=== PATIENT | male | born 1990 | race Caucasian/White ===

== ENCOUNTER 2017-07-12 05:13 | Emergency (ER) | payer MEDICAID ==
[~2017-07-12] VITALS: Ht 177.8 cm; Wt 75.0 kg
[~2017-07-12 05:13] MED LIST: CLIN-26 PO; CLIN-80 PO
[2017-07-12 05:51] LABS: BASOPHILS % (AUTO) 0.4 % (0-1); EOSINOPHILS # (AUTO) 0.2 X10'3 (0-0.9); EOSINOPHILS % (AUTO) 3.7 % (0-6); HEMATOCRIT 41.7 % (42.0-52.0); HEMOGLOBIN 14.4 g/dl (14.0-17.9); LYMPHOCYTES # (AUTO) 1.5 X10'3 (1.1-4.8); LYMPHOCYTES % (AUTO) 28.6 % (21-51); MEAN CORPUSCULAR HEMOGLOBIN 29.3 PG (27.0-31.0); MEAN CORPUSCULAR HGB CONC 34.5 % (33.0-36.5); MEAN CORPUSCULAR VOLUME 84.8 FL (78-98); MONOCYTES # (AUTO) 0.7 X10'3 (0-0.9); MONOCYTES % (AUTO) 12.7 % (2-12); NEUTROPHILS # (AUTO) 2.9 X10'3 (1.8-7.7); NEUTROPHILS % (AUTO) 54.6 % (42-75); PLATELET COUNT 274 X10'3 (140-440); RED BLOOD COUNT 4.92 X10'6 (4.70-6.10); RED CELL DISTRIBUTION WIDTH 13.7 % (11.5-14.5); WHITE BLOOD COUNT 5.4 X10'3 (4.5-11.0)
[2017-07-12 06:01] LABS: CLARITY,URINE SLIGHTLY CLOUDY (Clear); COLOR,URINE AMBER (Yellow); GLUCOSE, URINE NEGATIVE (Neg); KETONES,URINE TRACE mg/dl (Neg); LEUKOCYTE ESTERASE ,URINE NEGATIVE (Neg); NITRITES, URINE NEGATIVE (Neg); OCCULT BLOOD,URINE SMALL (Neg); PROTEIN,URINE TRACE mg/dl (Neg)
[2017-07-12 06:01] LABS: PROTHROMBIN TIME 10.5 SECONDS (9.0-12.0)
[2017-07-12 06:05] LABS: UA COLLECTION TYPE CLN CATCH MIDSTREAM
[2017-07-12 06:05] LABS: ALANINE AMINOTRANSFERASE 80 U/L (12-78); ALBUMIN 3.8 G/DL (3.4-5.0); ALBUMIN/GLOBULIN RATIO 1.1 (1.1-1.5); ALKALINE PHOSPHATASE 87 IU/L (46-116); ANION GAP 8 (8-16); ASPARTATE AMINO TRANSFERASE 50 U/L (10-37); BILIRUBIN,TOTAL 0.5 MG/DL (0.1-1.0); BLOOD UREA NITROGEN 15 MG/DL (7-18); BUN/CREATININE RATIO 17.6 (5.4-32.0); CALCIUM 9.1 MG/DL (8.5-10.1); CHLORIDE 105 MMOL/L (99-107); CREATININE 0.85 MG/DL (0.60-1.10); GLUCOSE 96 MG/DL (70-104); POTASSIUM 3.9 MMOL/L (3.5-5.1); SODIUM 142 MMOL/L (135-145); TOTAL PROTEIN 7.4 G/DL (6.4-8.2); eGFR > 90 ML/MIN
[2017-07-12] MEDS ORDERED: ondansetron/PF 4mg/2ml inj IV ONE (06:10)
[2017-07-12] MEDS ORDERED: normal saline 1000ML IV soln IVB ONE (06:10)
[2017-07-12 06:12] LABS: BACTERIA,URINE NONE SEEN /HPF (Neg); CAL OXALATE CRYSTALS 2+ /HPF (NEGATIVE); MUCUS STRANDS MODERATE /LPF (Neg); RBC,URINE 0-2 /HPF (0-2); SQUAMOUS EPITHELIAL CELL,UR NONE SEEN /LPF (FEW); WBC,URINE 0-4 /HPF (0-4)
[2017-07-12] MEDS ORDERED: ONDA4TAB9 PO (06:21)
[2017-07-12 07:14] VITALS: BP 129/76
== END 2017-07-12 07:18 | disposition home or self-care (01) ==
LOC: ER 05:13
DX: A08.4 Viral intestinal infection, unspecified (principal); F15.10 Other stimulant abuse, uncomplicated; F17.200 Nicotine dependence, unspecified, uncomplicated
CPT/HCPCS: 36415; 80053; 81001; 85025; 85610; 93005; 96361; 96374; 99285; J2405; J7030

== ENCOUNTER 2018-04-22 04:48 | Emergency (ER) | payer MEDICAID ==
[~2018-04-22] VITALS: Ht 177.8 cm; Wt 78.5 kg
[~2018-04-22 04:48] MED LIST changes: -CLIN-80 PO; +CLIN300C85 PO
[2018-04-22 04:50] VITALS: BP 134/88
[2018-04-22] MEDS ORDERED: SULF1TAB49 PO (05:27)
== END 2018-04-22 05:44 | disposition home or self-care (01) ==
LOC: ER 04:48
DX: L03.113 Cellulitis of right upper limb (principal); L03.114 Cellulitis of left upper limb; F15.90 Other stimulant use, unspecified, uncomplicated; F11.90 Opioid use, unspecified, uncomplicated; F17.200 Nicotine dependence, unspecified, uncomplicated; Z79.899 Other long term (current) drug therapy
CPT/HCPCS: 99283

== ENCOUNTER 2018-08-29 06:20 | Emergency (ER) | payer MEDICAID ==
[~2018-08-29] VITALS: Ht 177.8 cm; Wt 81.9 kg
[2018-08-29 06:39] VITALS: BP 139/95
[2018-08-29] MEDS ORDERED: SULF1TAB49 PO (06:45)
[2018-08-29] MEDS ORDERED: TETanus/Pertussis (Acell)/Diphther VAC/PF (Tdap-Adult) 0.5ml syringe IM ONE (07:15)
== END 2018-08-29 08:20 | disposition home or self-care (01) ==
LOC: ER 06:21
DX: L02.01 Cutaneous abscess of face (principal); F11.10 Opioid abuse, uncomplicated; F15.10 Other stimulant abuse, uncomplicated; Z86.14 Personal history of Methicillin resistant Staphylococcus aureus infection; Z79.899 Other long term (current) drug therapy
CPT/HCPCS: 90471; 90715; 99283

== ENCOUNTER 2018-11-01 20:04 | Emergency (ER) | payer MEDICAID ==
[~2018-11-01] VITALS: Ht 180.3 cm; Wt 77.0 kg
[~2018-11-01 20:04] MED LIST changes: +CLIN-96 PO; -CLIN300C85 PO
[2018-11-01 20:06] VITALS: BP 140/82
== END 2018-11-01 20:32 | disposition home or self-care (01) ==
LOC: ER 20:04
DX: F15.10 Other stimulant abuse, uncomplicated (principal); F11.90 Opioid use, unspecified, uncomplicated; F17.200 Nicotine dependence, unspecified, uncomplicated; Z86.14 Personal history of Methicillin resistant Staphylococcus aureus infection; Z79.899 Other long term (current) drug therapy
CPT/HCPCS: 99283

== ENCOUNTER 2018-11-07 14:59 | Emergency (ER) | payer MEDICAID ==
[~2018-11-07] VITALS: Ht 177.8 cm; Wt 79.5 kg
[2018-11-07 15:10] VITALS: BP 138/93
== END 2018-11-07 16:37 | disposition home or self-care (01) ==
LOC: ER 14:59
DX: F11.10 Opioid abuse, uncomplicated (principal); F15.10 Other stimulant abuse, uncomplicated; L55.9 Sunburn, unspecified
CPT/HCPCS: 99283

== ENCOUNTER 2018-11-13 08:09 | Emergency (ER) | payer MEDICAID ==
[~2018-11-13] VITALS: Ht 177.8 cm; Wt 78.0 kg
[2018-11-13 08:18] VITALS: BP 135/88
--- NOTE | 2018-11-13 08:31 | NUR ---
pt reports some chills and blurred vision.
== END 2018-11-13 09:25 | disposition home or self-care (01) ==
LOC: ER 08:09
DX: F19.10 Other psychoactive substance abuse, uncomplicated (principal); F15.90 Other stimulant use, unspecified, uncomplicated; F11.90 Opioid use, unspecified, uncomplicated; Z79.2 Long term (current) use of antibiotics; Z86.14 Personal history of Methicillin resistant Staphylococcus aureus infection
CPT/HCPCS: 99281

== ENCOUNTER 2018-12-12 16:10 | Emergency (ER) | payer MEDICAID ==
[~2018-12-12] VITALS: Ht 177.8 cm; Wt 78.7 kg
[2018-12-12 16:17] VITALS: BP 129/80
[2018-12-12] MEDS ORDERED: SULF1TAB49 PO (17:33)
== END 2018-12-12 18:06 | disposition home or self-care (01) ==
LOC: ER 16:11
DX: L02.01 Cutaneous abscess of face (principal); M27.2 Inflammatory conditions of jaws; F17.200 Nicotine dependence, unspecified, uncomplicated; F15.90 Other stimulant use, unspecified, uncomplicated; F11.90 Opioid use, unspecified, uncomplicated; Z79.899 Other long term (current) drug therapy
CPT/HCPCS: 10060; 41800; 99283

== ENCOUNTER 2019-01-23 18:19 | Emergency (ER) | payer MEDICAID ==
[~2019-01-23] VITALS: Ht 177.8 cm; Wt 77.3 kg
[2019-01-23 18:21] VITALS: BP 137/93
--- NOTE | 2019-01-23 21:28 | NUR ---
Pt not in room. Call placed to number on file. recived automated message that mail box was full. DR Davis informed
== END 2019-01-23 21:29 | disposition left against medical advice (07) ==
LOC: ER 18:19
DX: K04.7 Periapical abscess without sinus (principal); Z53.21 Procedure and treatment not carried out due to patient leaving prior to being seen by health care provider

== ENCOUNTER 2019-02-02 09:05 | Emergency (ER) | payer MEDICAID ==
[~2019-02-02] VITALS: Ht 177.8 cm; Wt 75.0 kg
[2019-02-02] MEDS ORDERED: ONDA4TAB6 PO (09:45)
[2019-02-02] MEDS ORDERED: ondansetron/PF 4mg/2ml inj IV ONE (09:45)
[2019-02-02] MEDS ORDERED: diphenhydrAMINE 50 mg/ml inj IV ONE (09:45)
[2019-02-02] MEDS ORDERED: normal saline 1000ML IV soln IVB ONE (09:50)
[2019-02-02 09:59] LABS: BASOPHILS % (AUTO) 0.2 % (0-1); EOSINOPHILS # (AUTO) 0.1 X10'3 (0-0.9); EOSINOPHILS % (AUTO) 0.6 % (0-6); HEMATOCRIT 44.8 % (42.0-52.0); HEMOGLOBIN 15.1 g/dl (14.0-17.9); LYMPHOCYTES # (AUTO) 0.9 X10'3 (1.1-4.8); LYMPHOCYTES % (AUTO) 9.7 % (21-51); MEAN CORPUSCULAR HEMOGLOBIN 28.9 PG (27.0-31.0); MEAN CORPUSCULAR HGB CONC 33.6 g/dL (33.0-36.5); MEAN CORPUSCULAR VOLUME 86.1 FL (78-98); MEAN PLATELET VOLUME 7.8 FL (7.4-10.4); MONOCYTES # (AUTO) 0.6 X10'3 (0-0.9); MONOCYTES % (AUTO) 6.1 % (2-12); NEUTROPHILS # (AUTO) 7.8 X10'3 (1.8-7.7); NEUTROPHILS % (AUTO) 83.4 % (42-75); PLATELET COUNT 307 X10'3 (140-440); RED BLOOD COUNT 5.21 X10'6 (4.70-6.10); RED CELL DISTRIBUTION WIDTH 13.9 % (11.5-14.5); WHITE BLOOD COUNT 9.4 X10'3 (4.5-11.0)
[2019-02-02 10:14] LABS: ALANINE AMINOTRANSFERASE 44 U/L (12-78); ALBUMIN 3.7 G/DL (3.4-5.0); ALBUMIN/GLOBULIN RATIO 0.9 (1.1-1.5); ALKALINE PHOSPHATASE 90 IU/L (46-116); AMYLASE 42 U/L (25-115); ANION GAP 9 (8-16); ASPARTATE AMINO TRANSFERASE 27 U/L (10-37); BILIRUBIN,TOTAL 0.7 MG/DL (0.1-1.0); BLOOD UREA NITROGEN 23 MG/DL (7-18); BUN/CREATININE RATIO 22.8 (5.4-32.0); CALCIUM 9.2 MG/DL (8.5-10.1); CHLORIDE 103 MMOL/L (99-107); CREATININE 1.01 MG/DL (0.60-1.10); GLUCOSE 117 MG/DL (70-104); LIPASE 64 U/L (73-393); POTASSIUM 4.4 MMOL/L (3.5-5.1); SODIUM 140 MMOL/L (135-145); TOTAL CARBON DIOXIDE 27.6 MMOL/L (24-32); TOTAL PROTEIN 7.6 G/DL (6.4-8.2); eGFR 89 ML/MIN
[2019-02-02 10:16] LABS: CLARITY,URINE SLIGHTLY CLOUDY (Clear); GLUCOSE, URINE NEGATIVE (Neg); KETONES,URINE TRACE mg/dl (Neg); LEUKOCYTE ESTERASE ,URINE NEGATIVE (Neg); NITRITES, URINE NEGATIVE (Neg); OCCULT BLOOD,URINE NEGATIVE (Neg); PROTEIN,URINE TRACE mg/dl (Neg)
[2019-02-02 10:17] LABS: COLOR,URINE DARK YELLOW (Yellow); UA COLLECTION TYPE URINAL
[2019-02-02 10:30] LABS: MUCUS STRANDS MANY /LPF (Neg); RBC,URINE NONE SEEN /HPF (0-2); SQUAMOUS EPITHELIAL CELL,UR FEW /LPF (FEW); WBC,URINE 0-4 /HPF (0-4)
[2019-02-02 10:31] LABS: BACTERIA,URINE FEW /HPF (Neg); TRANSITIONAL EPI CELLS,URINE FEW /HPF
[2019-02-02 10:32] LABS: AMORPHOUS URATES 1+
[2019-02-02 11:10] VITALS: BP 117/64
== END 2019-02-02 11:12 | disposition home or self-care (01) ==
LOC: ER 09:06
DX: R11.2 Nausea with vomiting, unspecified (principal); R10.13 Epigastric pain; F15.90 Other stimulant use, unspecified, uncomplicated; F11.90 Opioid use, unspecified, uncomplicated; Z86.14 Personal history of Methicillin resistant Staphylococcus aureus infection; Z79.899 Other long term (current) drug therapy
CPT/HCPCS: 36415; 80053; 81001; 82150; 83690; 85025; 85610; 96361; 96374; 96375; 99283; J1200; J2405; J7030

== ENCOUNTER 2020-09-17 07:15 | Emergency (ER) | payer MEDICAID ==
[~2020-09-17] VITALS: Ht 177.8 cm; Wt 86.4 kg
[~2020-09-17 07:15] MED LIST changes: -CLIN-96 PO; +CLIN-97 PO; +ONDA4TAB6 PO
[2020-09-17 07:31] VITALS: BP 134/79
== END 2020-09-17 08:08 | disposition home or self-care (01) ==
LOC: ER 07:16
DX: I83.891 Varicose veins of right lower extremity with other complications (principal); Z20.822 Contact with and (suspected) exposure to COVID-19; R11.2 Nausea with vomiting, unspecified; F15.90 Other stimulant use, unspecified, uncomplicated; F11.90 Opioid use, unspecified, uncomplicated; Z86.14 Personal history of Methicillin resistant Staphylococcus aureus infection; Z79.2 Long term (current) use of antibiotics; Z79.899 Other long term (current) drug therapy
CPT/HCPCS: 36415; 87635; 99283